=== PATIENT | female | born 1945 | race Caucasian/White ===

== ENCOUNTER → 2017-07-10 | Outpatient (CLI) | payer MEDICARE, BC ==
--- NOTE | 2017-07-11 12:14 | ECHOF ---
Referral Reason:R07.89 chest pain, R00.8 abnormalities of heart MEASUREMENTS -------- HEIGHT: 152.4 cm WEIGHT: 61.2 kg BP: IVSd: 1.4 cm (0.6 - 1.1) LVIDd: 3.2 cm (3.9 - 5.3) LVPWd: 1.0 cm (0.6 - 1.1) IVSs: 1.6 cm LVIDs: 2.3 cm LVPWs: 1.2 cm LAESV Index (A-L): 29.00 ml/m MV EXCURSION: 25.098 mm (> 18.000) MV EF SLOPE: 38 mm/s (70 - 150) EPSS: 0.5 cm MV E Kwasi: 0.61 m/s MV DecT: 248 ms MV A Kwasi: 0.89 m/s MV E/A Ratio: 0.69 AV maxP.24 mmHg AV meanP.39 mmHg RAP: 5.00 mmHg RVSP: 41.55 mmHg FINDINGS -------- Sinus rhythm. This was a technically good study. The left ventricular size is normal. There is moderate concentric left ventricular hypertrophy. O verall left ventricular systolic function is normal with, an EF between 55 - 60 %. The right ventricle is normal in size. The right atrial size is normal. Peak/mean gradient across the Aortic Valve is 15.24mmHg / 7.39mmHg. 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 Moderate mitral annular calcification present. Mild mitral regurgitation is present. [id number] tricuspid regurgitation present. There is mild pulmonary hypertension. The right ventricular systolic pressure, as measured by Doppler, is 41.55mmHg. Trace/mild (physiologic) pulmonic regurgitation. The aortic root size is normal. There is no pericardial effusion. CONCLUSIONS -------- 1. The left ventricular size is normal. 2. There is moderate concentric left ventricular hypertrophy. 3. Overall left ventricular systolic function is normal with, an EF between 55 - 60 %. 4. Peak/mean gradient across the Aortic Valve is 15.24mmHg / 7.39mmHg. 5. Normally functioning mechanical prosthetic valve. 6. 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 7. Moderate mitral annular calcification present. 8. Mild mitral regurgitation is present. 9. [id number] tricuspid regurgitation present. 10. There is mild pulmonary hypertension. 11. The right ventricular systolic pressure, as measured by Doppler, is 41.55mmHg. 12. Trace/mild (physiologic) pulmonic regurgitation. 13. The aortic root size is normal. 14. There is no pericardial effusion. DISTRIBUTION ENGINEER: Micki Martinez RDCS
== END | disposition home or self-care (01) ==
LOC: RADECHMAIN 13:25
PROVIDERS: ATTEND Internal Medicine Geriatric Medicine
DX: I08.3 Combined rheumatic disorders of mitral, aortic and tricuspid valves (principal); I27.20 Pulmonary hypertension, unspecified
CPT/HCPCS: 93306

== ENCOUNTER → 2022-05-18 | Outpatient (CLI) | payer MEDICARE, BC | END | disposition home or self-care (01) | LOC: RADECHMAIN 13:39 | PROVIDERS: ATTEND Internal Medicine Geriatric Medicine | DX: Z53.9 Procedure and treatment not carried out, unspecified reason (principal) ==